=== PATIENT | female | born 1990 | race Caucasian/White ===

== ENCOUNTER 2018-03-08 17:12 | Outpatient (CLI) | payer BC ==
--- NOTE | 2018-03-08 19:17 | US ---
EXAMINATION TYPE: US OB BPP wo non-stress DATE OF EXAM: 03/08/2018 COMPARISON: NONE CLINICAL HISTORY: nonreactive NST 35 5/7 weeks. EXAM PERFORMED: Transabdominal (TA) BPP PARAMETERS: PRESENTATION: Vertex LIE: Transverse with head maternal L?? HEART RATE: 159 bpm RHYTHM: Normal ALPHONSO: 13.78 CM DIAPHRAGM IMAGED: Yes BPP SCORIN. Breathin (1 episode of breathing of 30 second duration in 30 minutes of scanning time) 2. Movement: 2 (at least 3 discrete body movements in 30 minutes) 3. Tone: 2 (1 episode of active flexion/extension of limb) 4. ALPHONSO: 2 (ALPHONSO index > 5cm) TOTAL SCORE: 8 / 8 Impression Biophysical profile score is normal.
--- NOTE | 2018-03-20 08:41 | P.MSEPDOC ---
Presenting Problems - Arrival Data Date of Arrival on Unit: 03/08/18 Time of Arrival on Unit: 17:12 Mode of Transport: Portable - Complaint OB-Reason for Admission/Chief Complaint: NST, Other Comment: biophysical profile Medical History - Information : 2 Para: 0 Term: 0 : 0 Abortions: Spontaneous or Elective: 1 Number of Living Children: 0 - Gestational Age Gestational Age by FELIBERTO (wks/days): 35 Weeks and 5 Days Review of Systems - Review of Systems Constitutional: No problems Breast: No problems ENT: No problems Cardiovascular: No problems Respiratory: No problems Gastrointestinal: No problems Genitourinary: No problems Musculoskeletal: No problems Neurological: No problems Skin: No problems Physician Notification (Pre) - Physician Notified Physician Notified Date: 03/08/18 Physician Notified Time: 18:58 Spoke With: Dr. Gonzalez New Order Received: Yes (Discharge with instruction) - Notification Comment Comment: instructed to call office in am for instruction Disposition - Disposition OB Disposition: Triage, Discharge to home, Written follow up instructions reviewed Discharge Date: 03/08/18 Discharge Time: 19:00 I agree with the RN Medical Screening Exam: Yes Risk & Benefit of care provided described in d/c instruction: Yes Diagnosis: DECREASED MOVEMENTS, THIRD TRIMESTER, FETUS 1
== END 2018-03-08 19:00 | disposition home or self-care (01) ==
LOC: FBPOP 17:12
PROVIDERS: ATTEND Obstetrics & Gynecology Obstetrics
DX: O36.8131 Decreased fetal movements, third trimester, fetus 1 (principal); Z3A.35 35 weeks gestation of pregnancy
CPT/HCPCS: 59025; 76819

== ENCOUNTER 2018-03-29 13:40 | Outpatient (CLI) | payer BC, OTHER ==
[2018-03-29 14:34] VITALS: BP 126/59; PULSE 94; RESP 16; TEMP 97
--- NOTE | 2018-04-13 19:31 | P.MSEPDOC ---
Presenting Problems - Arrival Data Date of Arrival on Unit: 03/29/18 Time of Arrival on Unit: 13:40 Mode of Transport: Ambulatory - Complaint OB-Reason for Admission/Chief Complaint: Decreased Movement Comment: Decreased movement since last night Medical History - Information : 1 Para: 0 Term: 0 : 0 Abortions: Spontaneous or Elective: 0 Number of Living Children: 0 - Gestational Age Gestational Age by FELIBERTO (wks/days): 38 Weeks and 5 Days Review of Systems - Review of Systems Constitutional: No problems Breast: No problems ENT: No problems Cardiovascular: No problems Respiratory: No problems Gastrointestinal: No problems Genitourinary: No problems Musculoskeletal: No problems Neurological: No problems Skin: No problems Vital Signs - Temperature Temperature: 97 F Temperature Source: Temporal Artery Scan - Pulse Right Sitting Brachial Pulse Rate: 94 Pulse Assessment Method: Automatic Cuff - Respirations Respiratory Rate: 16 Oxygen Delivery Method: Room Air - Blood Pressure Right Arm Sitting Blood Pressure: 126/59 Blood Pressure Mean: 81 Blood Pressure Source: Automatic Cuff Medical Screen Scoring (Pre) - Cervical Exam Dilation: Exam Deferred Effacement: Exam Deferred Membranes: Intact - Uterine Contractions Frequency: > 5 minutes apart = 1 Duration: N/A Intensity: N/A - Maternal Vital Signs Maternal Temperature: N/A Maternal Blood Pressure: N/A Signs of Preeclampsia: N/A Maternal Respirations: N/A - Assessment Baseline FHR: 130 Heart Rate - NICHD Category: Category I (Normal) = 0 NST: Reactive Position: N/A Station: N/A - Total Score Total Score (Pre): 1 - Level of Risk Level of Risk: Low (0-5) Physician Notification (Pre) - Physician Notified Physician Notified Date: 03/29/18 Physician Notified Time: 14:17 Physician/Practitioner Notifed:: Chris Spoke With: Chris New Order Received: Yes - Notification Comment Comment: Damien rey\Dr. Perez, advsd 38 5, c/o decreased movement since last night, movement audible and palpable, reactive NST, irregular contractions pt reports not feeling. States to d/c home, to follow up as scheduled. Disposition - Disposition OB Disposition: Discharge to home, Written follow up instructions reviewed I agree with the RN Medical Screening Exam: Yes Risk & Benefit of care provided described in d/c instruction: Yes Diagnosis: DECREASED MOVEMENTS, THIRD TRIMESTER, UNSP
== END 2018-03-29 14:30 | disposition home or self-care (01) ==
LOC: FBPOP 13:40
PROVIDERS: ATTEND Obstetrics & Gynecology Obstetrics
DX: O36.8130 Decreased fetal movements, third trimester, not applicable or unspecified (principal); Z3A.38 38 weeks gestation of pregnancy
CPT/HCPCS: 59025; 99213

== ENCOUNTER 2018-04-11 17:06 | Outpatient (CLI) | payer BC, OTHER ==
[2018-04-11 18:53] VITALS: BP 132/67; PULSE 80; RESP 17; TEMP 97.8
--- NOTE | 2018-04-12 12:48 | P.MSEPDOC ---
Presenting Problems - Arrival Data Date of Arrival on Unit: 04/11/18 Time of Arrival on Unit: 17:06 Mode of Transport: Ambulatory - Complaint OB-Reason for Admission/Chief Complaint: Possible Onset of Labor Comment: pt has been fallon since appt earlier today with dr meadows, pt reports contractions every2-4 minutes and rates her pain a 4-510 Medical History - Information : 2 Para: 0 Term: 0 : 0 Abortions: Spontaneous or Elective: 1 Number of Living Children: 0 - Gestational Age Gestational Age by FELIBERTO (wks/days): 40 Weeks and 4 Days Review of Systems - Review of Systems Constitutional: No problems Breast: No problems ENT: No problems Cardiovascular: No problems Respiratory: No problems Gastrointestinal: No problems Genitourinary: No problems Musculoskeletal: No problems Neurological: No problems Skin: No problems Vital Signs - Temperature Temperature: 97.8 F Temperature Source: Oral - Pulse Right Brachial Pulse Rate: 80 Pulse Assessment Method: Automatic Cuff - Respirations Respiratory Rate: 17 Oxygen Delivery Method: Room Air O2 Sat by Pulse Oximetry: 99 - Blood Pressure Right Arm Blood Pressure: 132/67 Blood Pressure Mean: 88 Blood Pressure Source: Automatic Cuff Medical Screen Scoring (Pre) - Cervical Exam Dilation: 1-3 cm = 1 Effacement: More than 50% = 2 Membranes: Intact - Uterine Contractions Frequency: > 5 minutes apart = 1 Duration: > 40 seconds = 2 Intensity: N/A - Maternal Vital Signs Maternal Temperature: N/A Maternal Blood Pressure: N/A Signs of Preeclampsia: N/A Maternal Respirations: N/A - Pain Assessment Pain Location and Character: Abdomen Pain Scale Used: Numeric (1 - 10) Pain Intensity: 5 Pain Management Goal: 3 Pain Description: *Acute, Cramping Pain Radiation Location: none Pain Frequency: Intermittent Pain Duration: 2 Pain Duration Units: Hours Pain Behavior: Facial Grimacing Pain Aggravating Factors: Contractions - Maternal Trauma Maternal Trauma: N/A - Assessment Baseline FHR: 125 Heart Rate - NICHD Category: Category I (Normal) = 0 NST: Reactive Position: N/A Station: N/A - Total Score Total Score (Pre): 6 - Level of Risk Level of Risk: Medium (6-9) Physician Notification (Pre) - Physician Notified Physician Notified Date: 04/11/18 Physician Notified Time: 18:38 Physician/Practitioner Notifed:: Dr Gaviria Spoke With: Dr Gaviria New Order Received: Yes (dc home) - Notification Comment Comment: pt is scheduled for induction in the am Disposition - Disposition OB Disposition: Discharge to home, Written follow up instructions reviewed Discharge Date: 04/11/18 Discharge Time: 18:45 I agree with the RN Medical Screening Exam: Yes Risk & Benefit of care provided described in d/c instruction: Yes Diagnosis: FALSE LABOR AT OR AFTER 37 COMPLETED WEEKS OF GESTATION
== END 2018-04-11 18:45 | disposition home or self-care (01) ==
LOC: FBPOP 17:06
PROVIDERS: ATTEND Obstetrics & Gynecology
DX: Z53.9 Procedure and treatment not carried out, unspecified reason (principal)

== ENCOUNTER 2018-04-11 23:38 | Inpatient (IN) | payer BC, OTHER ==
[~2018-04-11 23:38] MED LIST: ROPIVACAINE 5MG/ML 20ML VIAL ONE; SODIUM CHLORIDE 0.9% 100 ML BAG ONE; fentaNYL (PF) 50 MCG/ML 5 ML AMP ONE
[2018-04-11] MEDS ORDERED: TERBUTALINE 1 MG/ML VIAL SQ PRN (23:51)
[2018-04-11] MEDS ORDERED: OXYTOCIN 10 UNIT/ML 1 ML VIAL IM PRN (23:51)
[2018-04-11] MEDS ORDERED: CARBOPROST TROMETHAMINE 250 MCG/ML 1 ML AMP IM PRN (23:51)
[2018-04-11] MEDS ORDERED: LIDOCAINE 1% (PF) 10 MG/ML (30 ML SDV) SQ PRN (23:51)
[2018-04-11] MEDS ORDERED: PENICILLIN G POTASSIUM 5,000,000 UNIT in DEXTROSE 5% IN WATER 100 ML IVPB STA ×2 (23:51)
[2018-04-11] MEDS ORDERED: METHYLERGONOVINE 0.2 MG/ML 1 ML AMP IM PRN (23:51)
[2018-04-11 23:57] VITALS: BMI 27.8
[2018-04-12] MEDS: LACTATED RINGERS 1,000 ML IV SCH ×3 (00:02→06:55)
[2018-04-12 00:09] LABS: Basophils % (A) 0 %; Eosinophils # (A) 0.1 k/uL (0-0.7); Eosinophils % (A) 1 %; HCT 35.5 % (34.0-46.0); Lymphocytes # (A) 0.7 k/uL (1.0-4.8); Lymphocytes % (A) 8 %; MCH 29.5 pg (25.0-35.0); MCHC 33.9 g/dL (31.0-37.0); MCV 87.1 fL (80.0-100.0); Monocytes # (A) 0.3 k/uL (0-1.0); Monocytes % (A) 4 %; Neutrophils # (A) 7.9 k/uL (1.3-7.7); Neutrophils % (A) 87 %; Platelet Count 184 k/uL (150-450); RBC 4.07 m/uL (3.80-5.40); RDW 13.6 % (11.5-15.5); WBC 9.1 k/uL (3.8-10.6)
[2018-04-12] MEDS ORDERED: fentaNYL (PF) 50 MCG/ML 5 ML AMP ONE (00:20)
[2018-04-12] MEDS ORDERED: SODIUM CHLORIDE 0.9% 100 ML BAG ONE (00:20)
[2018-04-12] MEDS ORDERED: ROPIVACAINE 5MG/ML 20ML VIAL ONE (00:20)
[2018-04-12] MEDS: PENICILLIN G POTASSIUM 2,500,000 UNIT in DEXTROSE 5% IN WATER 100 ML IVPB SCH ×4 (04:05→08:32)
[2018-04-12] MEDS ORDERED: OXYTOCIN 20 UNITS/1000 ML NS 1,000 ML IV SCH ×2 (06:45→09:30)
--- NOTE | 2018-04-12 09:15 | P.HPOB ---
History of Present Illness H&P Date: 04/12/18 Chief Complaint: IUP at 40-5/7 weeks, active labor This is a very pleasant 27-year-old 2 para 0010 at 40-5/7 weeks with an estimated due date of 726. Patient presented in active labor around 11:30 last evening. Patient progressed slowly through labor eventually getting an epidural for discomfort, at 7:30 this morning she was anterior lip. Artificial rupture of membranes was performed with clear fluid obtained. Patient was complete at that time. Patient began pushing and had a normal spontaneous vaginal delivery of a viable male infant at 849, weight of 8 lbs. 3 oz., Apgars of 9 and 9 at one and 5 minutes respectively. The placenta was then doubly clamped and cut after a 2 minute delay. The placenta was delivered spontaneously intact with a three-vessel cord. On inspection the patient's vaginal vault a first-degree laceration was noted this repaired in the usual fashion. On further inspection no further lacerations were noted and hemostasis was appreciated. The uterus was firm and below the umbilicus. The bladder was then emptied for 200 mL of clear yellow urine. Next Estimated blood loss 200 mL Mother and tolerated delivery well and are resting comfortably Past Medical History Past Medical History: No Reported History History of Any Multi-Drug Resistant Organisms: None Reported Past Surgical History: No Surgical Hx Reported Past Anesthesia/Blood Transfusion Reactions: No Reported Reaction Past Psychological History: No Psychological Hx Reported Smoking Status: Never smoker - Past Family History Father Family Medical History: Cancer, Diabetes Mellitus Medications and Allergies Home Medications Medication Instructions Recorded Confirmed Type Hoh-Prqn-Lsyrn Acid 1 cap PO DAILY 04/11/18 04/11/18 History [-U Capsule (formulary)] Allergies Allergy/AdvReac Type Severity Reaction Status Date / Time codeine Allergy Wheezing Verified 04/11/18 23:51 Exam Osteopathic Statement: *. No significant issues noted on an osteopathic structural exam other than those noted in the History and Physical/Consult. Vital Signs Temp Pulse Resp BP Pulse Ox 04/11/18 23:50 98 F 86 16 125/58 99 Intake and Output 04/11/18 04/12/18 04/12/18 22:59 06:59 14:59 Intake Total 6.2 Balance 6.2 Intake: Intake, IV Titration 6.2 Amount Oxytocin 20 Units/1000 ml 6.2 Ns 1,000 ml @ 1 MILLIUNIT/MIN 3 mls/hr IV .Q24H KOMAL Rx#:[id number] Other: # Voids 1 Weight 75.75 kg Results Result Diagrams: 04/11/18 23:58 Abnormal Lab Results - Last 24 Hours (Table) 04/11/18 Range/Units 23:58 Neutrophils # 7.9 H (1.3-7.7) k/uL Lymphocytes # 0.7 L (1.0-4.8) k/uL
[2018-04-12] MEDS ORDERED: ACETAMINOPHEN TAB 325 MG TAB PO PRN (09:16)
[2018-04-12] MEDS ORDERED: diphenhydrAMINE 25 MG CAP PO PRN (09:16)
[2018-04-12] MEDS ORDERED: BENZOCAINE/MENTHOL SPRAY 1 GM/SPRAY AEROSOL TOPICAL PRN (09:16)
[2018-04-12] MEDS ORDERED: diphenhydrAMINE 50 MG/ML 1 ML VIAL IVP PRN ×2 (09:16)
[2018-04-12] MEDS ORDERED: diphenhydrAMINE 50 MG CAP PO PRN (09:16)
[2018-04-12] MEDS ORDERED: LANOLIN CREAM 5 GM TUBE TOPICAL PRN (09:16)
[2018-04-12] MEDS ORDERED: SIMETHICONE 80 MG CHEWABLE PO PRN (09:16)
[2018-04-12] MEDS ORDERED: ZOLPIDEM 5 MG TAB PO PRN (09:16)
[2018-04-12] MEDS ORDERED: WITCH HAZEL 1 EACH MED..PAD TOPICAL PRN (09:16)
[2018-04-12] MEDS ORDERED: HYDROCORTISONE 2.5% RECTAL CREAM 30 GM TUBE RECTAL PRN (09:16)
--- NOTE | 2018-04-12 09:27 | P.HPOB ---
History of Present Illness H&P Date: 04/12/18 Chief Complaint: IUP @ 40 5/7 weeks, active labor This is a 27yo at 40 5/7 weeks, EDC 04/07. she presents with c/o regular painful contractions. she denies LOF, VB On bloodwork she has a blood type of O pos, rubella immune, HBsAG neg, RPR NR, HIV Neg. GBS pos Review of Systems Constitutional: Reports fatigue, Denies chills, Denies fever Ears, nose, mouth and throat: Denies headache Cardiovascular: Denies leg edema Genitourinary: Reports Past Medical History Past Medical History: No Reported History History of Any Multi-Drug Resistant Organisms: None Reported Past Surgical History: No Surgical Hx Reported Past Anesthesia/Blood Transfusion Reactions: No Reported Reaction Past Psychological History: No Psychological Hx Reported Smoking Status: Never smoker - Past Family History Father Family Medical History: Cancer, Diabetes Mellitus Medications and Allergies Home Medications Medication Instructions Recorded Confirmed Type Tkx-Wfvz-Nqbvw Acid 1 cap PO DAILY 04/11/18 04/11/18 History [-U Capsule (formulary)] Allergies Allergy/AdvReac Type Severity Reaction Status Date / Time codeine Allergy Wheezing Verified 04/11/18 23:51 Exam Osteopathic Statement: *. No significant issues noted on an osteopathic structural exam other than those noted in the History and Physical/Consult. Vital Signs Temp Pulse Resp BP Pulse Ox 04/12/18 09:05 97.8 F 106 H 18 120/70 04/11/18 23:50 98 F 86 16 125/58 99 Intake and Output 04/11/18 04/12/18 04/12/18 22:59 06:59 14:59 Intake Total 6.2 Balance 6.2 Intake: Intake, IV Titration 6.2 Amount Oxytocin 20 Units/1000 ml 6.2 Ns 1,000 ml @ 1 MILLIUNIT/MIN 3 mls/hr IV .Q24H KOMAL Rx#:[id number] Other: # Voids 1 Weight 75.75 kg - OBG Physical Exam Abdomen: gravid and appropriate for GA Uterus: gravid Uterus: enlarged Results Result Diagrams: 04/11/18 23:58 Abnormal Lab Results - Last 24 Hours (Table) 04/11/18 Range/Units 23:58 Neutrophils # 7.9 H (1.3-7.7) k/uL Lymphocytes # 0.7 L (1.0-4.8) k/uL Assessment and Plan (1) Term Current Visit: Yes Status: Acute Code(s): Z34.80 - ENCOUNTER FOR SUPRVSN OF NORMAL , UNSP TRIMESTER SNOMED Code(s): 13775159 (2) Positive GBS test Current Visit: Yes Status: Acute Code(s): B95.1 - STREPTOCOCCUS, GROUP B, CAUSING DISEASES CLASSD [facility] SNOMED Code(s): 1708775811171 (3) Post-dates Current Visit: Yes Status: Acute Code(s): O48.0 - POST-TERM SNOMED Code(s): 60571807 Plan: will admit for labor, epidural per pt request. anticipate .
--- NOTE | 2018-04-12 09:30 | P.PROBDLV ---
Vaginal Delivery Note - . Vaginal Delivery Note: This is a very pleasant 27-year-old 2 para 0 at 40-5/7 weeks with an estimated due date of 726. She presents to labor and delivery around 11:30 last evening with complaints of regular painful contractions. She progressed through labor eventually getting an epidural for analgesia and amniotomy was performed this morning. Clear fluid was obtained from amniotomy. Patient progressed to complete and had a spontaneous vaginal delivery of a viable male weight of 8 lbs. 3 oz. at 849, Apgars of 9 and 9 at one and 5 minutes or sexually. The placenta was then doubly clamped and cut after a 2 minute delay. The placenta was delivered spontaneously intact with a three-vessel cord. The vaginal vault was noted to have a first degree vaginal laceration this was repaired in the usual fashion with 3-0 repeat. The uterus was noted to be firm and below the umbilicus. The bladder was drained after delivery and 200 mL clear yellow urine was obtained. Estimated blood loss 200 mL Mother and tolerated delivery well and are resting comfortably.
[2018-04-12] MEDS: IBUPROFEN 600 MG TAB PO PRN ×2 (17:02→23:10)
[2018-04-12] MEDS: SENNOSIDES-DOCUSATE SODIUM 1 EACH TAB PO SCH (21:24)
--- NOTE | 2018-04-13 08:23 | P.DS ---
Providers Date of admission: 04/11/18 23:38 Expected date of discharge: 04/13/18 Attending physician: Darya Perez Primary care physician: Darya Perez - Discharge Diagnosis(es) (1) Term Current Visit: Yes Status: Acute (2) Positive GBS test Current Visit: Yes Status: Acute (3) Post-dates Current Visit: Yes Status: Acute (4) Status post vaginal delivery Current Visit: Yes Status: Acute Hospital Course: This is a 27-year-old at 40 5/7 weeks that presented in active labor to labor and delivery on 731. Patient progressed through labor eventually getting an epidural and amniotomy was performed. Patient progressed quickly to complete began pushing and had a normal spontaneous vaginal delivery of a viable male infant weight of 8 lbs. 3 oz., at 849, Apgars of 9 and 9 at one and 5 minutes respectively. Patient's course has been uneventful. She is ambulating and voiding without difficulty. Her lochia is minimal, she is breast-feeding with some difficulty. She denies nausea or vomiting and is tolerating a regular diet. She does wish to be discharged home at 24 hours. Patient Condition at Discharge: Good Plan - Discharge Summary New Discharge Prescriptions: No Action Ohp-Atsu-Obufi Acid [-U Capsule (formulary)] 1 cap PO DAILY Discharge Medication List Cms-Bgrw-Ytftr Acid [-U Capsule (formulary)] 1 cap PO DAILY [History] Follow up Appointment(s)/Referral(s): Darya Perez DO [Primary Care Provider] - 4 Weeks Patient Instructions/Handouts: Vaginal Delivery (DC), Vaginal Delivery (GEN) Activity/Diet/Wound Care/Special Instructions: no tub baths or intercourse until 6 weeks Discharge Disposition: HOME SELF-CARE
[2018-04-13] MEDS: SENNOSIDES-DOCUSATE SODIUM 1 EACH TAB PO SCH (08:37)
[2018-04-13] MEDS: IBUPROFEN 600 MG TAB PO PRN (08:37)
[2018-04-13 08:54] LABS: Basophils % (A) 0 %; Eosinophils # (A) 0.1 k/uL (0-0.7); Eosinophils % (A) 1 %; HGB 10.7 gm/dL (11.4-16.0); Lymphocytes # (A) 0.8 k/uL (1.0-4.8); Lymphocytes % (A) 11 %; MCH 28.8 pg (25.0-35.0); MCHC 32.5 g/dL (31.0-37.0); MCV 88.7 fL (80.0-100.0); Monocytes # (A) 0.2 k/uL (0-1.0); Monocytes % (A) 3 %; Neutrophils # (A) 5.6 k/uL (1.3-7.7); Neutrophils % (A) 84 %; Platelet Count 163 k/uL (150-450); RBC 3.73 m/uL (3.80-5.40); RDW 13.9 % (11.5-15.5); WBC 6.7 k/uL (3.8-10.6)
[2018-04-13] MEDS ORDERED: PRENATAL VIT-IRON-FOLIC ACID 1 EACH CAP PO SCH (09:00)
[2018-04-13 12:47] VITALS: BP 120/75; PULSE 93; RESP 18; TEMP 98.2
== END 2018-04-13 14:30 | disposition home or self-care (01) | DRG 775 ==
LOC: 4FBP 23:38
PROVIDERS: ADMIT Obstetrics & Gynecology; ATTEND Obstetrics & Gynecology Obstetrics
PROC: 0HQ9XZZ Repair Perineum Skin, External Approach (ICD-10-PCS; principal; 2018-04-11)
PROC: 00HU33Z Insertion of Infusion Device into Spinal Canal, Percutaneous Approach (ICD-10-PCS; principal; 2018-04-11)
PROC: 10907ZC Drainage of Amniotic Fluid, Therapeutic from Products of Conception, Via Natural or Artificial Opening (ICD-10-PCS; principal; 2018-04-11)
PROC: 10E0XZZ Delivery of Products of Conception, External Approach (ICD-10-PCS; principal; 2018-04-11)
PROC: 3E0R3NZ Introduction of Analgesics, Hypnotics, Sedatives into Spinal Canal, Percutaneous Approach (ICD-10-PCS; principal; 2018-04-11)
DX: O48.0 Post-term pregnancy (principal); O70.0 First degree perineal laceration during delivery; O99.824 Streptococcus B carrier state complicating childbirth; Z37.0 Single live birth; Z3A.40 40 weeks gestation of pregnancy; Z88.5 Allergy status to narcotic agent; Z87.891 Personal history of nicotine dependence
CPT/HCPCS: 85025

== ENCOUNTER 2021-07-08 14:06 | Emergency (ER) | payer OTHER ==
[2021-07-08 14:53] VITALS: PULSE 111; RESP 19; TEMP 99.1
[2021-07-08] MEDS ORDERED: IBUPROFEN 600 MG TAB PO STA (15:11)
--- NOTE | 2021-07-08 15:15 | ED ---
General Adult HPI - General Chief complaint: ENT Stated complaint: sore throat, fever, congestion Time Seen by Provider: 07/08/21 15:02 Source: patient Mode of arrival: ambulatory Limitations: no limitations - History of Present Illness Initial comments: Well-appearing well-nourished 30-year-old female that presents to the emergency room with complaints of 2 weeks of sore throat and body aches. She states that her son has also been sick. She states there was never a diagnosis given to him. She states she already had coronavirus. She is not concerned about Covid. She is concerned about the exudates to bilateral tonsils and swollen lymph nodes. She has a low-grade fever today of 99.1 has not had any Tylenol or Motrin. She states that she has good oral intake. Denies any abdominal pain, nausea, vomiting or diarrhea. She has no medical history and denies medicines on a daily basis. -: week(s) (2) Location: neck (sore throat) Radiation: non-radiation Severity scale (1-10): 4 Quality: constant Consistency: constant Improves with: none Worsens with: none Associated Symptoms: malaise Treatments Prior to Arrival: none - Related Data Previous Rx's Medication Instructions Recorded Penicillin V Potassium [Pen Vee K] 500 mg PO QID 10 Days #20 tablet 07/08/21 Allergies Allergy/AdvReac Type Severity Reaction Status Date / Time codeine Allergy Wheezing Verified 07/08/21 16:36 Review of Systems ROS Statement: Those systems with pertinent positive or pertinent negative responses have been documented in the HPI. ROS Other: All systems not noted in ROS Statement are negative. Past Medical History Past Medical History: No Reported History History of Any Multi-Drug Resistant Organisms: None Reported Past Surgical History: No Surgical Hx Reported Past Anesthesia/Blood Transfusion Reactions: No Reported Reaction Past Psychological History: No Psychological Hx Reported Smoking Status: Never smoker - Past Family History Father Family Medical History: Cancer, Diabetes Mellitus General Exam Limitations: no limitations General appearance: alert, in no apparent distress Head exam: Present: atraumatic, normocephalic, normal inspection Eye exam: Present: normal appearance, EOMI ENT exam: Present: mucous membranes moist Expanded Mouth exam: Present: normal external inspection. Absent: drooling, trismus Throat exam: tonsillar erythema, tonsillar exudate. negative: R peritonsillar mass, L peritonsillar mass Neck exam: Present: tenderness, full ROM. Absent: thyromegaly Respiratory exam: Present: normal lung sounds bilaterally. Absent: respiratory distress, wheezes, rales, rhonchi, stridor Cardiovascular Exam: Present: tachycardia GI/Abdominal exam: Present: soft, normal bowel sounds. Absent: distended, tenderness, guarding, rebound, rigid Neurological exam: Present: alert, oriented X3 Psychiatric exam: Present: normal affect, normal mood Skin exam: Present: warm, dry, intact, normal color. Absent: rash Course Vital Signs 07/08/21 07/08/21 14:49 19:01 Temperature 99.1 F Pulse Rate 111 H Respiratory 19 Rate Blood Pressure 131/84 124/72 O2 Sat by Pulse 97 Oximetry Medical Decision Making - Medical Decision Making Physical well-appearing patient with good oral intake. She has no abdominal pain. Patient has tender cervical lymph nodes, bilateral tonsillar exudates and absence of cough. Rapid strep test is negative. [place] test was drawn and patient was advised to follow up on her portal to see the results. She was prescribed antibiotics and directed to follow up with her primary care doctor this week. Patient is agreeable to this plan of care. Case was discussed with Dr. Faith. - Lab Data Lab Results 07/08/21 Range/Units 16:03 Group A Strep Rapid Negative (Negative) Disposition Clinical Impression: Pharyngitis Disposition: HOME SELF-CARE Condition: Good Instructions (If sedation given, give patient instructions): Pharyngitis (ED) Additional Instructions: Take medication as prescribed. Follow-up with your primary care doctor this week for a mono test results. Return to the emergency room with any new or worsening symptoms. Prescriptions: Penicillin V Potassium [Pen Vee K] 500 mg PO QID 10 Days #20 tablet Is patient prescribed a controlled substance at d/c from ED?: No Referrals: None,Stated [Primary Care Provider] - 1-2 days Time of Disposition: 18:56
[2021-07-08 19:03] VITALS: BP 124/72
== END 2021-07-08 19:03 | disposition home or self-care (01) ==
LOC: EC 14:06
DX: J02.9 Acute pharyngitis, unspecified (principal); R53.81 Other malaise; Z88.5 Allergy status to narcotic agent
CPT/HCPCS: 36415; 86665; 87081; 87430; 99283

== ENCOUNTER → 2021-12-04 | Outpatient (CLI) | payer OTHER ==
--- NOTE | 2021-12-05 06:29 | US ---
EXAMINATION TYPE: Transabdominal DATE OF EXAM: 12/04/2021 4:54 PM COMPARISON: NONE CLINICAL HISTORY: Z36.87 UNCERTAIN LMP. Unsure of dates EXAM PERFORMED: Transabdominal (TA) EXAM MEASUREMENTS: GESTATIONAL AGE / DATING Physician Established: (10 weeks/0 days) EDC: 07/02/2022 Dates by Current Scan for: (10 weeks/0 days) EDC: 07/02/2022 MATERNAL ANATOMY Uterus: 13.6 x 7.7 x 5.7 Right Ovary: 4.0x 3.1 x 3.5 Left Ovary: 7.5 x 6.1 x 5.6 Presence of free fluid: none Presence of corpus luteal cyst: non vis Presence of subchorionic bleed: none GESTATION / SURVEY CRL: (10 weeks/0 days) Yolk Sac (normal less than 6mm): 0.4 Heart Rate: 158 bpm Rhythm: Normal IUP: Viable IUP Date of LMP: Unknown Beta HcG (if available): Not available at this time Single live IUP Heterogeneous anteverted uterus. Single live intrauterine gestation is confirmed as gestational sac, yolk sac, pole are present. No free fluid in pelvic cul-de-sac. Both ovaries identified. Left ovary is noted larger in size. IMPRESSION: Single live intrauterine gestation is confirmed. Mean crown-rump length is 3.0 cm corresp onding to 10 weeks 0 day old fetus
== END | disposition home or self-care (01) ==
LOC: RADUSWWP 16:33
PROVIDERS: ATTEND Obstetrics & Gynecology Obstetrics
DX: Z36.87 Encounter for antenatal screening for uncertain dates (principal)
CPT/HCPCS: 76801

== ENCOUNTER 2022-04-19 16:00 | Outpatient (CLI) | payer OTHER ==
[2022-04-19 17:15] VITALS: BP 123/65; PULSE 96; RESP 16; TEMP 97
--- NOTE | 2022-04-24 08:49 | P.MSEPDOC ---
Presenting Problems - Arrival Data Date of Arrival on Unit: 04/19/22 Time of Arrival on Unit: 16:00 Mode of Transport: Ambulatory - Complaint OB-Reason for Admission/Chief Complaint: Rule Out SROM Comment: 1530 clear fluid per patient. Medical History - Information : 2 Para: 1 Term: 1 : 0 Abortions: Spontaneous or Elective: 0 Number of Living Children: 1 - Gestational Age Gestational Age by FELIBERTO (wks/days): 29 Weeks and 1 Days Review of Systems - Review of Systems Constitutional: No problems Breast: No problems ENT: No problems Cardiovascular: No problems Respiratory: No problems Gastrointestinal: No problems Genitourinary: No problems Musculoskeletal: No problems Neurological: No problems Skin: No problems Vital Signs - Temperature Temperature: 97.0 F Temperature Source: Temporal Artery Scan - Pulse Pulse Oximetery Pulse Rate: 96 Pulse Assessment Method: Pulse Oximetry - Respirations Respiratory Rate: 16 Oxygen Delivery Method: Room Air O2 Sat by Pulse Oximetry: 99 - Blood Pressure Right Arm Blood Pressure: 123/65 Blood Pressure Mean: 84 Blood Pressure Source: Automatic Cuff Medical Screen Scoring - Uterine Contractions Frequency From (mins): 0 Frequency To (mins): 0 - Assessment - Baby A Baseline FHR: 135 Heart Rate - NICHD Category: Category I (Normal) NST: Reactive Physician Notification - Physician Notified Physician Notified Date: 04/19/22 Physician Notified Time: 16:43 Physician: Dr. Gaviria New Order Received: Yes - Notification Comment Comment: Dr. Gaviria notified of patient of Dr. Webb 29.1, , FELIBERTO 07/04/2022. Patient presents to triage with possible SROM, Amnisure negative and sterile spec shows no signs of SROM. NST reactive. Orders to discharge home with pelvic rest until seen by Dr. Perez at follow up visit on 04/23/22. Maternal Triage Index - Maternal Triage Index Presenting for scheduled procedure w/no complaint: No - Stat/Priority 1 Stat Priority 1: No - Urgent/Priority 2 Urgent Priority 2: Yes Provider Notified: Dr. Gaviria Provider Notified Time: 16:43 Criteria Met for Priority 2: < 34 wks c/o SROM- Amnisure negative Disposition - Disposition OB Disposition: Physician follow up in office, Discharge to home Discharge Date: 04/19/22 Discharge Time: 16:52 I agree with the RN Medical Screening Exam: Yes Case reviewed; plan agreed upon as documented in EMR&OBIX.: Yes Diagnosis: FALSE LABOR BEFORE 37 COMPLETED WEEKS OF GEST, THIRD TRI
== END 2022-04-19 16:53 | disposition home or self-care (01) ==
LOC: FBPOP 16:00
PROVIDERS: ATTEND Obstetrics & Gynecology
DX: O47.1 False labor at or after 37 completed weeks of gestation (principal); Z3A.29 29 weeks gestation of pregnancy; Z88.5 Allergy status to narcotic agent
CPT/HCPCS: 59025; 84112; G0463; 99213

== ENCOUNTER 2022-07-04 13:03 | Inpatient (IN) | payer OTHER ==
[2022-07-06] MEDS: LACTATED RINGERS 1,000 ML IV SCH ×3 (06:25→22:41)
[2022-07-06] MEDS ORDERED: LIDOCAINE 0.5% (PF) 5 MG/ML (50 ML SDV) SQ PRN (06:26)
[2022-07-06] MEDS ORDERED: TERBUTALINE 1 MG/ML VIAL SQ PRN (06:26)
[2022-07-06] MEDS ORDERED: OXYTOCIN 10 UNIT/ML 1 ML VIAL IM PRN (06:26)
[2022-07-06] MEDS ORDERED: METHYLERGONOVINE 0.2 MG/ML 1 ML AMP IM PRN (06:26)
[2022-07-06] MEDS ORDERED: CARBOPROST TROMETHAMINE 250 MCG/ML 1 ML AMP IM PRN (06:26)
[2022-07-06] MEDS ORDERED: OXYTOCIN 30 UNITS/500 ML NS 30 UNIT in SALINE 1 500ML.BAG IV SCH ×2 (06:30→17:00)
[2022-07-06 06:42] LABS: Basophils % (A) 0 %; Eosinophils # (A) 0.1 k/uL (0-0.7); Eosinophils % (A) 1 %; HGB 12.6 gm/dL (11.4-16.0); Lymphocytes % (A) 22 %; MCH 31.2 pg (25.0-35.0); MCV 86.7 fL (80.0-100.0); Mean Platelet Volume 8.7; Monocytes # (A) 0.2 k/uL (0-1.0); Monocytes % (A) 5 %; Neutrophils # (A) 3.1 k/uL (1.3-7.7); Neutrophils % (A) 69 %; Platelet Count 182 k/uL (150-450); RBC 4.04 m/uL (3.80-5.40); RDW 14.2 % (11.5-15.5); WBC 4.4 k/uL (3.8-10.6)
[2022-07-06] MEDS ORDERED: BUTORPHANOL 1 MG/ML 1 ML VIAL IV PRN (09:19)
--- NOTE | 2022-07-06 11:15 | P.HPOB ---
History of Present Illness H&P Date: 07/06/22 Chief Complaint: IUP at 40 and 2/7 weeks This is a 31-year-old at 40-2/7 weeks that presents to labor and delivery for induction of labor secondary to postdates. Patient has been receiving routine care which has been essentially uncomplicated. She was diagnosed with a Chlamydia infection in December 2021, tolerated Zithromax treatment without difficulty test of cure was negative. Patient does note good movement denies contractions or vaginal bleeding. On bloodwork this patient has a blood type of O+, rubella status immune, RPR is nonreactive, B surface antigen is negative, HIV is negative she did pass her 1 hour gestational diabetes screen, 135. Group beta strep culture was negative on 06/04. Review of Systems Constitutional: Denies chills, Denies fatigue, Denies fever Ears, nose, mouth and throat: Denies headache Cardiovascular: Denies leg edema Respiratory: Denies dyspnea Gastrointestinal: Denies constipation, Denies diarrhea, Denies nausea, Denies vomiting Genitourinary: Reports Past Medical History Past Medical History: No Reported History History of Any Multi-Drug Resistant Organisms: None Reported Past Surgical History: No Surgical Hx Reported Past Anesthesia/Blood Transfusion Reactions: No Reported Reaction Past Psychological History: Bipolar, Depression Smoking Status: Former smoker Past Alcohol Use History: None Reported Past Drug Use History: None Reported - Past Family History Father Family Medical History: Diabetes Mellitus Mother Family Medical History: Cancer, Diabetes Mellitus, Myocardial Infarction ([place]) Medications and Allergies Home Medications Medication Instructions Recorded Confirmed Type No Known Home Medications 04/19/22 07/06/22 History Allergies Allergy/AdvReac Type Severity Reaction Status Date / Time codeine Allergy Wheezing Verified 07/06/22 06:22 Exam Osteopathic Statement: *. No significant issues noted on an osteopathic structural exam other than those noted in the History and Physical/Consult. Vital Signs Temp Pulse Resp BP Pulse Ox 07/06/22 06:40 97.2 F L 114 H 18 123/72 98 Intake and Output 07/05/22 07/06/22 07/06/22 22:59 06:59 14:59 Other: Weight 81.647 kg Targeted physical exam is performed in this date and line rider a well-nourished well-developed female in no acute distress, breathing is noted to be nonlabored, heart has a regular rate and rhythm, abdomen is gravid and appropriate for gestational age, on cervical exam she is 1/thick/-3 station, vertex presentation, heart tones returned be category 1, irregular contractions were appreciated. Results Result Diagrams: 07/06/22 06:30 Assessment and Plan (1) Post-dates Current Visit: No Status: Acute Code(s): O48.0 - POST-TERM SNOMED Code(s): 57557597 Plan: 31-year-old 011 that presents for induction of labor secondary to postdates. Patient is admitted to labor and delivery and Pitocin induction of labor is begun per hospital protocol. Options for analgesia are discussed including Stadol, epidural, nitrous. Patient will consider. Anticipate spontaneous vaginal delivery later today.
[2022-07-06] MEDS ORDERED: LANOLIN CREAM 5 GM TUBE TOPICAL PRN (16:50)
[2022-07-06] MEDS ORDERED: ZOLPIDEM 5 MG TAB PO PRN (16:50)
[2022-07-06] MEDS ORDERED: HYDROCORTISONE 2.5% RECTAL CREAM 30 GM TUBE RECTAL PRN (16:50)
[2022-07-06] MEDS ORDERED: diphenhydrAMINE 50 MG/ML 1 ML VIAL IVP PRN ×2 (16:50)
[2022-07-06] MEDS ORDERED: diphenhydrAMINE 25 MG CAP PO PRN (16:50)
[2022-07-06] MEDS ORDERED: SIMETHICONE 80 MG CHEWABLE PO PRN (16:50)
[2022-07-06] MEDS ORDERED: ACETAMINOPHEN TAB 325 MG TAB PO PRN (16:50)
[2022-07-06] MEDS ORDERED: diphenhydrAMINE 50 MG CAP PO PRN (16:50)
[2022-07-06] MEDS ORDERED: BENZOCAINE/MENTHOL SPRAY 1 GM/SPRAY AEROSOL TOPICAL PRN (16:50)
--- NOTE | 2022-07-06 16:51 | P.PROBDLV ---
Vaginal Delivery Note - . Vaginal Delivery Note: Findings: viable female delivered at 16 and 24, weight of 7-2, 3225 grams, Apgars of 9 and 9 at one and 5 minutes respectively. This is a 31-year-old that presented to labor and delivery at 40-2/7 weeks. Patient is receiving routine care. Patient is admitted for a postdate induction of labor. Pitocin induction of labor was begun per hospital protocol. Patient was admitted once regular contractions were appreciated amniotomy was performed, clear fluid was obtained. Patient progressed in labor eventually becoming uncomfortable and did request epidural placement. Epidural was placed without difficulty by the anesthesia department. Patient meets with progress to complete was placed in a modified lithotomy position and began pushing. With excellent maternal effort she brought the infant down to a presentation, with additional pushing the anterior then posterior shoulder followed by the infants bodys was delivered. Infant was placed on the maternal abdomen, spontaneous cry was noted at . After a two-minute delay the umbilical cord is doubly clamped and cut. The placenta was delivered spontaneously intact with three-vessel cord being noted. The bladder was then drained for approximately 200 mL of clear yellow urine, uterus was noted to be firm and below the umbilicus. On inspection the patient's vaginal vault a first-degree vaginal laceration was noted. After instillation of lidocaine, it was repaired in usual fashion with 3-0 Rapide. Hemostasis was repaired after repair of laceration. All counts were noted be correct 2. Patient and tolerated delivery well and are resting comfortably.
[2022-07-06] MEDS: IBUPROFEN 600 MG TAB PO SCH ×2 (19:12→22:39)
[2022-07-06] MEDS: SENNOSIDES-DOCUSATE SODIUM 1 EACH TAB PO SCH (20:07)
[2022-07-07] MEDS: IBUPROFEN 600 MG TAB PO SCH ×2 (03:56→14:01)
[2022-07-07] MEDS: SENNOSIDES-DOCUSATE SODIUM 1 EACH TAB PO SCH (08:44)
--- NOTE | 2022-07-07 13:18 | P.DS ---
Providers Date of admission: 07/06/22 06:11 Expected date of discharge: 07/07/22 Attending physician: Darya Perez Primary care physician: Stated None - Discharge Diagnosis(es) (1) Post-dates Current Visit: No Status: Acute (2) Obstetric vaginal laceration with first degree perineal laceration Current Visit: Yes Status: Acute (3) Status post vaginal delivery Current Visit: No Status: Acute Hospital Course: 31-year-old 011 that presented to labor and delivery at 40-2/7 weeks on 07/06. Patient was receiving routine care with myself. Patient elected induction of labor secondary to postdates. Patient was admitted to labor and delivery and Pitocin induction of labor was begun per hospital protocol. Patient underwent amniotomy and clear fluid was obtained. Patient progressed through labor eventually becoming uncomfortable requesting epidural placement. Epidural was placed without difficulty by the anesthesia department. Patient did progress to complete and had a normal spent taste vaginal delivery of a viable female infant delivered at 1624, weight of 7 lbs. 2 oz. Patient did sustain a first-degree vaginal laceration which was repaired in usual fashion with 3-0 repeat. Patient is doing well . She is ambulate and voiding without difficulty. She is tolerating a regular diet without nausea or vomiting. She states she feels well and would like discharge home. Patient Condition at Discharge: Good Plan - Discharge Summary New Discharge Prescriptions: No Action No Known Home Medications Discharge Medication List No Known Home Medications 04/19/22 [History] Follow up Appointment(s)/Referral(s): Darya Perez DO [Doctor of Osteopathic Medicine] - 4 Weeks Patient Instructions/Handouts: Vaginal Delivery (GEN), Vaginal Delivery (DC) Discharge Disposition: HOME SELF-CARE
[2022-07-07 15:44] VITALS: BP 114/76; PULSE 89; RESP 18; TEMP 98.1
== END 2022-07-07 17:34 | disposition home or self-care (01) | DRG 807 ==
LOC: 4FBP 07-06 06:11
PROVIDERS: ADMIT Obstetrics & Gynecology Obstetrics; ATTEND Obstetrics & Gynecology Obstetrics
PROC: 10E0XZZ Delivery of Products of Conception, External Approach (ICD-10-PCS; principal; 2022-07-06)
PROC: 0HQ9XZZ Repair Perineum Skin, External Approach (ICD-10-PCS; 2022-07-06)
PROC: 3E033VJ Introduction of Other Hormone into Peripheral Vein, Percutaneous Approach (ICD-10-PCS; 2022-07-06)
PROC: 10907ZC Drainage of Amniotic Fluid, Therapeutic from Products of Conception, Via Natural or Artificial Opening (ICD-10-PCS; 2022-07-06)
PROC: 4A0HXCZ Measurement of Products of Conception, Cardiac Rate, External Approach (ICD-10-PCS; 2022-07-06)
DX: O48.0 Post-term pregnancy (principal); Z37.0 Single live birth; O99.344 Other mental disorders complicating childbirth; O70.0 First degree perineal laceration during delivery; F31.9 Bipolar disorder, unspecified; Z3A.40 40 weeks gestation of pregnancy; Z87.891 Personal history of nicotine dependence; Z88.5 Allergy status to narcotic agent; Z86.19 Personal history of other infectious and parasitic diseases
CPT/HCPCS: 85025; 86850; 86900; 86901

== ENCOUNTER 2024-03-06 17:56 | Emergency (ER) | payer OTHER ==
[2024-03-06 18:01] VITALS: TEMP 98
[2024-03-06 18:50] LABS: Appearance,Urine Clear (Clear); Bilirubin,Urine Negative (Negative); Blood,Urine Large (Negative); Color,Urine Colorless; Glucose,Urine (UA) Negative (Negative); Ketones,Urine Negative (Negative); Leukocyte Esterase,Urine Negative (Negative); Nitrite,Urine Negative (Negative); PH, Urine 5.5 (5.0-8.0); Protein,Urine Negative (Negative); RBC,Urine 1 /hpf (0-5); Specific Gravity,Urine 1.002 (1.001-1.035); Squamous Epithelial Cell,Urine 2 /hpf (0-4); Urobilinogen,Urine <2.0 mg/dL (<2.0); WBC,Urine 1 /hpf (0-5)
[2024-03-06 18:58] LABS: Basophils % (A) 1 %; Eosinophils # (A) 0.1 k/uL (0-0.7); Eosinophils % (A) 2 %; HCT 38.5 % (34.0-46.0); HGB 13.1 gm/dL (11.4-16.0); Lymphocytes # (A) 1.3 k/uL (1.0-4.8); Lymphocytes % (A) 37 %; MCH 30.5 pg (25.0-35.0); MCHC 33.9 g/dL (31.0-37.0); Mean Platelet Volume 9.4; Monocytes # (A) 0.2 k/uL (0-1.0); Monocytes % (A) 6 %; Neutrophils # (A) 1.8 k/uL (1.3-7.7); Neutrophils % (A) 52 %; Platelet Count 124 k/uL (150-450); RBC 4.28 m/uL (3.80-5.40); RDW 12.2 % (11.5-15.5); WBC 3.5 k/uL (3.8-10.6)
[2024-03-06 19:15] LABS: ALT 26 U/L (4-34); African American GFR (CKD) >90 (>60 ml/min/1.73 sqM); Albumin 4.9 g/dL (3.5-5.0); Amylase 45 U/L (30-110); Anion Gap 8 mmol/L; Blood Urea Nitrogen 5 mg/dL (7-17); Calcium 9.5 mg/dL (8.4-10.2); Carbon Dioxide 21 mmol/L (22-30); Chloride 108 mmol/L (98-107); Glucose 86 mg/dL (74-99); Lipase 35 U/L (23-300); Non-African American GFR(CKD) >90 (>60 ml/min/1.73 sqM); Sodium 137 mmol/L (137-145); Total Bilirubin 0.9 mg/dL (0.2-1.3); Total Protein 7.1 g/dL (6.3-8.2)
[2024-03-06 19:16] LABS: Potassium 4.1 mmol/L (3.5-5.1)
[2024-03-06 19:17] LABS: AST 38 U/L (14-36); Alkaline Phosphatase 26 U/L (38-126)
[2024-03-06 19:32] LABS: HCG,Quantitative Serum 45.8 mIU/mL
--- NOTE | 2024-03-06 21:54 | US ---
EXAMINATION TYPE: US abdomen APPY DATE OF EXAM: 03/06/2024 COMPARISON: NONE CLINICAL INDICATION: Female, 33 years old with history of rlq pain, positive test; Patient states RLQ pain TECHNIQUE: Multiple sonographic images of the right lower quadrant were obtained with graded compress ion. FINDINGS: STAFFING PROGRAM MANAGER NOTES: The appendix is unable to be visualized today due to overlying bowel and patient b nathan habitus IMPRESSION: Nonvisualization of the appendix in the right lower quadrant. This does not exclude diagnosis of acut e appendicitis.
--- NOTE | 2024-03-06 21:55 | US ---
EXAMINATION TYPE: Transabdominal DATE OF EXAM: 03/06/2024 9:21 PM COMPARISON: NONE CLINICAL INDICATION: Female, 33 years old with history of positive , right sided pain; RLQ p ain, positive test EXAM PERFORMED: Transvaginal (TV) and Transabdominal (TA) EXAM MEASUREMENTS: GESTATIONAL AGE / DATING Dates by LMP: (1 weeks/0 days) EDC: 12/04/2024 Dates by First Scan: No previous this is first scan Dates by Current Scan for: Unable to date by today's study MATERNAL ANATOMY Uterus: 9.0 x 4.8 x 5.6cm. Anteverted, appears WNL. The endometrium measures 1.0cm with no gestationa l sac seen today Right Ovary: 4.7 x 3.2 x 3.0cm. Follicular changes noted. WNL as best seen Left Ovary: Obscured by overlying bowel Post CDS / Adnexa: Small amount of free fluid seen within the posterior cul de sac Presence of free fluid: Small amount Presence of corpus luteal cyst: No Presence of subchorionic bleed: No GESTATION / SURVEY IUP: No IUP seen at this time Date of LMP: 02/28/2024 Beta HcG (if available): 45.8 IMPRESSION: 1. No evidence of intrauterine gestational sac in this patient with a positive B-hCG. This can be see n in early , ectopic and spontaneous . Follow up pelvic ultrasound in 5-7 days and serial beta hCG studies are recommended.
--- NOTE | 2024-03-06 22:22 | ED ---
Abdominal Pain HPI - General Chief Complaint: Abdominal Pain Stated Complaint: Abd pain Time Seen by Provider: 03/06/24 18:00 Source: patient Mode of arrival: ambulatory Limitations: no limitations - History of Present Illness Initial Comments: 33-year-old female presents emergency department with right lower quadrant abdominal pain. Patient states that she had intense pain in the right lower quadrant yesterday. This morning the pain was better however she went to an urgent care to be evaluated. They were concerned as the pain was in the right lower quadrant center for further evaluation. She denies any peritoneal symptoms. She denies any urinary complaints to include dysuria, hematuria or difficulty voiding. Patient is having some vaginal bleeding. States that this is odd for her as she just had a menstrual cycle a week ago. She denies any flank pain. No changes in her bowel habits. No other alleviating, precipitating modifying factors - Related Data Home Medications Medication Instructions Recorded Confirmed No Known Home Medications 04/19/22 07/06/22 Allergies Allergy/AdvReac Type Severity Reaction Status Date / Time codeine Allergy Wheezing Verified 03/06/24 18:00 Review of Systems ROS Statement: Those systems with pertinent positive or pertinent negative responses have been documented in the HPI. ROS Other: All systems not noted in ROS Statement are negative. Past Medical History Past Medical History: No Reported History History of Any Multi-Drug Resistant Organisms: None Reported Past Surgical History: No Surgical Hx Reported Past Anesthesia/Blood Transfusion Reactions: No Reported Reaction Past Psychological History: Bipolar, Depression Smoking Status: Former smoker Past Alcohol Use History: None Reported Past Drug Use History: None Reported - Past Family History Father Family Medical History: Diabetes Mellitus Mother Family Medical History: Cancer, Diabetes Mellitus, Myocardial Infarction ([place]) General Exam Limitations: no limitations General appearance: alert, in no apparent distress Head exam: Present: atraumatic, normocephalic, normal inspection Eye exam: Present: normal appearance, PERRL, EOMI. Absent: scleral icterus, conjunctival injection, periorbital swelling ENT exam: Present: normal exam, mucous membranes moist Neck exam: Present: normal inspection. Absent: tenderness, meningismus, lymphadenopathy Respiratory exam: Present: normal lung sounds bilaterally. Absent: respiratory distress, wheezes, rales, rhonchi, stridor Cardiovascular Exam: Present: regular rate, normal rhythm, normal heart sounds. Absent: systolic murmur, diastolic murmur, rubs, gallop, clicks GI/Abdominal exam: Present: soft, tenderness (Right lower quadrant), normal bowel sounds. Absent: distended, guarding, rebound, rigid Extremities exam: Present: normal inspection, full ROM, normal capillary refill. Absent: tenderness, pedal edema, joint swelling, calf tenderness Back exam: Present: normal inspection Neurological exam: Present: alert, oriented X3, CN II-XII intact Psychiatric exam: Present: normal affect, normal mood Skin exam: Present: warm, dry, intact, normal color. Absent: rash Course Vital Signs 03/06/24 03/06/24 03/06/24 17:57 19:54 22:35 Temperature 98 F Pulse Rate 99 85 80 Respiratory 22 17 16 Rate Blood Pressure 125/81 110/72 109/72 O2 Sat by Pulse 99 98 98 Oximetry Medical Decision Making - Medical Decision Making Was pt. sent in by a medical professional or institution (, PA, NETWORK RELAY TESTER, urgent care, hospital, or fci...) When possible be specific @ -Patient was sent in from urgent care Did you speak to anyone other than the patient for history (EMS, parent, family, police, friend...)? What history was obtained from this source @ -No Did you review nursing and triage notes (agree or disagree)? Why? @ -I reviewed and agree with nursing and triage notes Were old charts reviewed (outside hosp., previous admission, EMS record, old EKG, old radiological studies, urgent care reports/EKG's, fci records)? Report findings @ -No old charts were reviewed Differential Diagnosis (chest pain, altered mental status, abdominal pain women, abdominal pain men, vaginal bleeding, weakness, fever, dyspnea, syncope, headache, dizziness, GI bleed, back pain, seizure, CVA, palpatations, mental health, musculoskeletal)? @ -Differential Abdominal Pain Women: Appendicitis, Cholecystitis, diverticulosis, ischemic bowel, pancreatitis, hepatitis, UTI, gastroenteritis, AAA, incarcerated hernia, bowel obstruction, constipation, inflammatory bowel, hepatitis, peptic ulcer disease, splenic infarction, perforated viscus, vulvitis, ovarian torsion, PID, kidney stone, placenta abruption, this is not meant to be an all-inclusive list EKG interpreted by me (3pts min.). @ -As above X-rays interpreted by me (1pt min.). @ -None done CT interpreted by me (1pt min.). @ -None done U/S interpreted by me (1pt. min.). @ -Yes and demonstrates no acute findings What testing was considered but not performed or refused? (CT, X-rays, U/S, labs)? Why? @ -CT was considered however patient does have positive test What meds were considered but not given or refused? Why? @ -None Did you discuss the management of the patient with other professionals (professionals i.e. DrJohn, PA, NETWORK RELAY TESTER, lab, RT, psych nurse, social studies teacher, roofing laborer, t eacher, youth liaison officer, family service caseworker)? Give summary @ -I spoke with on-call SALES HOST Dr. Gonzalez about the patient. She is to call the office in the morning to make an appointment Was smoking cessation discussed for >3mins.? @ -No Was critical care preformed (if so, how long)? @ -No Were there social determinants of health that impacted care today? How? (Homelessness, low income, unemployed, alcoholism, drug addiction, transportation, low edu. Level, literacy, decrease access to med. care, alf, rehab)? @ -No Was there de-escalation of care discussed even if they declined (Discuss DNR or withdrawal of care, Hospice)? DNR status @ -No What co-morbidities impacted this encounter? (DM, HTN, Smoking, COPD, CAD, Cancer, CVA, ARF, Chemo, Hep., AIDS, mental health diagnosis, sleep apnea, mo rbid obesity)? @ -None Was patient admitted / discharged? Hospital course, mention meds given and r oute, prescriptions, significant lab abnormalities, going to OR and other pertinent info. @ -Upon arrival patient seen and evaluated in hallway 26. Thorough history and physical exam was performed. Laboratory studies are conducted. Patient does have positive test. Ultrasound was performed. No signs of ectopic however this is the biggest concern at this time as there is no IUP. This is discussed with the patient. Appendix not visualized at this time. Patient has controlled pain. She will be discharged with a prescription to have repeat laboratory studies performed in 48 hours. Patient will follow-up with Dr. Gonzalez in office. I did speak with him and he is aware of the patient. Laboratory results will be sent to him. She is to return for any new or worse [facility] symptoms include increasing pain. Patient agreeable to this and was discharged in stable condition Undiagnosed new problem with uncertain prognosis? @ -Yes Drug Therapy requiring intensive monitoring for toxicity (Heparin, Nitro, Insulin, Cardizem)? @ -No Were any procedures done? @ -No Diagnosis/symptom? @ -Acute right lower quadrant abdominal pain, of undetermined location, possible ectopic versus miscarriage Acute, or Chronic, or Acute on Chronic? @ -Acute Uncomplicated (without systemic symptoms) or Complicated (systemic symptoms)? @ -Complicated Side effects of treatment? @ -No Exacerbation, Progression, or Severe Exacerbation? @ -No Poses a threat to life or bodily function? How? (Chest pain, [place], [place], pneumonia, PE, COPD, DKA, ARF, appy, cholecystitis, CVA, Diverticulitis, Homicidal, Suicidal, threat to staff... and all critical care pts) @ -Yes if ectopic goes undiagnosed - Lab Data Result diagrams: 03/06/24 18:49 03/06/24 18:49 Lab Results 03/06/24 03/06/24 03/06/24 Range/Units 18:41 18:49 18:49 WBC 3.5 L (3.8-10.6) k/uL RBC 4.28 (3.80-5.40) m/uL Hgb 13.1 (11.4-16.0) gm/dL Hct 38.5 (34.0-46.0) % MCV 90.0 (80.0-100.0) fL MCH 30.5 (25.0-35.0) pg MCHC 33.9 (31.0-37.0) g/dL RDW 12.2 (11.5-15.5) % Plt Count 124 L (150-450) k/uL MPV 9.4 Neutrophils % 52 % Lymphocytes % 37 % Monocytes % 6 % Eosinophils % 2 % Basophils % 1 % Neutrophils # 1.8 (1.3-7.7) k/uL Lymphocytes # 1.3 (1.0-4.8) k/uL Monocytes # 0.2 (0-1.0) k/uL Eosinophils # 0.1 (0-0.7) k/uL Basophils # 0.0 (0-0.2) k/uL Sodium 137 (137-145) mmol/L Potassium 4.1 (3.5-5.1) mmol/L Chloride 108 H (98-107) mmol/L Carbon Dioxide 21 L (22-30) mmol/L Anion Gap 8 mmol/L BUN 5 L (7-17) mg/dL Creatinine 0.48 L (0.52-1.04) mg/dL Est GFR (CKD-EPI)AfAm >90 (>60 ml/min/1.73 sqM) Est GFR (CKD-EPI)NonAf >90 (>60 ml/min/1.73 sqM) Glucose 86 (74-99) mg/dL Calcium 9.5 (8.4-10.2) mg/dL Total Bilirubin 0.9 (0.2-1.3) mg/dL AST 38 H (14-36) U/L ALT 26 (4-34) U/L Alkaline Phosphatase 26 L (38-126) U/L Total Protein 7.1 (6.3-8.2) g/dL Albumin 4.9 (3.5-5.0) g/dL Amylase 45 (30-110) U/L Lipase 35 (23-300) U/L HCG, Quant 45.8 mIU/mL Urine Color Colorless Urine Appearance Clear (Clear) Urine pH 5.5 (5.0-8.0) Ur Specific [place] 1.002 (1.001-1.035) Urine Protein Negative (Negative) Urine Glucose (UA) Negative (Negative) Urine Ketones Negative (Negative) Urine Blood Large H (Negative) Urine Nitrite Negative (Negative) Urine Bilirubin Negative (Negative) Urine Urobilinogen <2.0 (<2.0) mg/dL Ur Leukocyte Esterase Negative (Negative) Urine RBC 1 (0-5) /hpf Urine WBC 1 (0-5) /hpf Ur Squamous Epith Cells 2 (0-4) /hpf Disposition Clinical Impression: Positive test, RLQ abdominal pain Disposition: HOME SELF-CARE Condition: Stable Instructions (If sedation given, give patient instructions): Abdominal Pain in (ED) Additional Instructions: Please come to the outpatient lab on Wednesday to have your hormone level redrawn. These results will be sent to the SALES HOST. Call the office tomorrow morning to make an appointment. They are aware of what is going on. Please return should you have any worsening pain Is patient prescribed a controlled substance at d/c from ED?: No Referrals: Kim Anderson DO [Primary Care Provider] - 1-2 days Mitesh Gonzalez MD [STAFF PHYSICIAN] - 1-2 days Time of Disposition: 22:27
[2024-03-06 22:36] VITALS: BP 109/72; PULSE 80; RESP 16
== END 2024-03-06 22:36 | disposition home or self-care (01) ==
LOC: EC 17:56
DX: N93.9 Abnormal uterine and vaginal bleeding, unspecified (principal); Z87.891 Personal history of nicotine dependence; Z88.5 Allergy status to narcotic agent
CPT/HCPCS: 36415; 76705; 76801; 76817; 80053; 81001; 82150; 83690; 84702; 85025; 99284

== ENCOUNTER → 2024-03-09 | Outpatient (CLI) | payer OTHER | END | disposition home or self-care (01) | LOC: LABWHC1 08:25 | PROVIDERS: ATTEND Emergency Medicine | DX: N93.9 Abnormal uterine and vaginal bleeding, unspecified (principal); R10.31 Right lower quadrant pain | CPT/HCPCS: 36415; 84702 ==